=== PATIENT | male | born 1940 | race Two or more races ===

== ENCOUNTER 2019-04-10 08:39 | Outpatient (CLI) | payer OTHER | END 2019-04-10 08:47 | disposition home or self-care (01) | LOC: LAB 08:39 | DX: C73 Malignant neoplasm of thyroid gland (principal); E89.0 Postprocedural hypothyroidism ==

== ENCOUNTER 2019-04-13 10:14 | Outpatient (CLI) | payer OTHER | END 2019-04-13 10:25 | disposition home or self-care (01) | LOC: NUCLEAR 10:14 | DX: C73 Malignant neoplasm of thyroid gland (principal); E89.0 Postprocedural hypothyroidism | CPT/HCPCS: 79005; A9517 ==

== ENCOUNTER 2019-04-18 14:10 | Outpatient (CLI) | payer OTHER | END 2019-04-18 15:45 | disposition home or self-care (01) | LOC: NUCLEAR 14:10 | DX: C73 Malignant neoplasm of thyroid gland (principal); E89.0 Postprocedural hypothyroidism ==